=== PATIENT | female | born 1975 | race Native Hawaiian/Other Pacific Islander ===

== ENCOUNTER 2016-11-26 08:08 | Outpatient (CLI) | payer OTHER | END 2016-11-26 19:28 | disposition home or self-care (01) | LOC: MAMMO 08:08 | DX: Z12.31 Encounter for screening mammogram for malignant neoplasm of breast (principal) | CPT/HCPCS: G0202-TC ==

== ENCOUNTER 2017-08-26 12:03 | Outpatient (CLI) | payer OTHER | END 2017-08-26 23:33 | disposition home or self-care (01) | LOC: RAD 12:03 | DX: R06.02 Shortness of breath (principal) ==

== ENCOUNTER 2018-05-20 12:02 | Observation (INO) | payer OTHER ==
[~2018-05-20] VITALS: Ht 157.5 cm; Wt 69.1 kg
[2018-05-20 13:19] LABS: PLATELET COUNT 161 K/uL (152-353)
[2018-05-20 13:32] LABS: PARTIAL THROMBOPLASTIN TIME 28.1 SECONDS (24.5-33.6)
[2018-05-20 13:53] LABS: POTASSIUM 3.5 mmol/L (3.6-5.2)
[2018-05-20 17:28] VITALS: BP 119/62; TEMP 97.5; Ht 157.5 cm; Wt 69.1 kg
[2018-05-20 20:00] VITALS: BP 121/52; TEMP 98.2
[2018-05-21] VITALS: BP 100/50; TEMP 98.3
[2018-05-21 04:00] VITALS: BP 93/44; TEMP 97.7
[2018-05-21 08:00] VITALS: BP 102/58; TEMP 98.5
[2018-05-21 12:00] VITALS: BP 101/48; TEMP 97.7
== END 2018-05-21 13:42 | disposition home or self-care (01) ==
LOC: MED/SURG 12:02
PROVIDERS: ADMIT Family Medicine
DX: R00.1 Bradycardia, unspecified (principal); R07.89 Other chest pain; R06.02 Shortness of breath; F41.8 Other specified anxiety disorders; R42 Dizziness and giddiness; M54.2 Cervicalgia; M54.89 Other dorsalgia
CPT/HCPCS: 36415; 80053; 80061; 81025; 82550; 83735; 84100; 84439; 84443; 84484; 85027; 85610; 85730; 93005; 96374; 99220; G0378; G0379; J3490

== ENCOUNTER 2018-07-27 10:26 | Day surgery (SDC) | payer OTHER | END 2018-07-27 12:37 | disposition home or self-care (01) | LOC: OR 10:26 | PROC: 0DB68ZZ Excision of Stomach, Via Natural or Artificial Opening Endoscopic (ICD-10-PCS; principal; 2018-07-27) | PROC: 0DB88ZZ Excision of Small Intestine, Via Natural or Artificial Opening Endoscopic (ICD-10-PCS; 2018-07-27) | DX: K29.50 Unspecified chronic gastritis without bleeding (principal); B96.81 Helicobacter pylori [H. pylori] as the cause of diseases classified elsewhere; K21.0 Gastro-esophageal reflux disease with esophagitis; K22.4 Dyskinesia of esophagus; R07.89 Other chest pain; R10.13 Epigastric pain; R10.11 Right upper quadrant pain | CPT/HCPCS: J2001; J2250; J2405; J2704 ==

== ENCOUNTER 2019-08-31 12:20 | Outpatient (CLI) | payer OTHER | END 2019-08-31 22:54 | disposition home or self-care (01) | LOC: RAD 12:20 | DX: R51 Headache (principal); R53.83 Other fatigue; G47.00 Insomnia, unspecified; M25.511 Pain in right shoulder; M54.2 Cervicalgia ==

== ENCOUNTER 2020-02-16 08:09 | Outpatient (CLI) | payer OTHER ==
[~2020-02-16 08:09] MED LIST: ALPR0.2566 PO; BUT/APAP/CA1 PO; PAXIL10 MG PO
== END 2020-02-16 19:05 | disposition home or self-care (01) ==
LOC: MAMMO 08:09
DX: Z12.31 Encounter for screening mammogram for malignant neoplasm of breast (principal)

== ENCOUNTER 2022-02-16 12:33 | Outpatient (CLI) | payer OTHER | END 2022-02-16 19:42 | disposition home or self-care (01) | LOC: MAMMO 12:33 | PROVIDERS: ATTEND Internal Medicine | DX: Z12.31 Encounter for screening mammogram for malignant neoplasm of breast (principal) ==